=== PATIENT | male | born 1980 | race Two or more races ===

== ENCOUNTER 2017-06-14 20:09 | Emergency (ER) | payer BC, OTHER ==
[2017-06-14] MEDS ORDERED: methylPREDNISolone Sodium Succinate 125 MG/2 ML SDV IVPUSH ONE (20:31)
[2017-06-14] MEDS ORDERED: Sodium Chloride 0.9% 10 ML Syringe FLUSH PRN (20:31)
[2017-06-14] MEDS ORDERED: diphenhydrAMINE 50 MG/ML SDV IVPUSH ONE (20:31)
[2017-06-14] MEDS ORDERED: Famotidine 20 MG/2 ML SDV IVPUSH ONE (20:31)
--- NOTE | 2017-06-14 21:16 | EDM.PDOC ---
ED HPI GENERAL MEDICAL PROBLEM - General Chief Complaint: ENT Problem Stated Complaint: POSSIBLE ALERGIC REACTION Time Seen by Provider: 06/14/17 20:25 Source of Information: Reports: Patient History Limitations: Reports: No Limitations - History of Present Illness INITIAL COMMENTS - FREE TEXT/NARRATIVE: The patient presents with a possible allergic reaction. The patient ate some fajitas tonight and he went to a friends house and drank some water and then he noticed swelling to the inner lip on the right and swelling to the back of his throat and some phlegm back there. He may also have some shortness of breath. He has no history of allergies. He is not on any medication. He did not eat anything odd that may have caused a reaction. He has no rash. He has no fever , chills, cough, chest pain, abdominal pain or vomiting. He does have some nausea. He has some neck pain. Onset: Sudden Duration: Minutes: Location: Reports: Face Severity: Moderate Improves with: Reports: None Worsens with: Reports: None Context: Reports: Activity (It started after drinking some water) Associated Symptoms: Reports: Nausea/Vomiting. Denies: Chest Pain, Cough, Fever /Chills, Headaches, Shortness of Breath Right Ear Pain Score (Numeric/FACES): 6 - Related Data Allergies Allergy/AdvReac Type Severity Reaction Status Date / Time No Known Allergies Allergy Verified 06/14/17 20:24 Home Meds: Home Meds Lisdexamfetamine [Vyvanse] 20 mg PO DAILY 06/14/17 [History] Prednisone [IJD: predniSONE] 40 mg PO WITHBREAKFAST #10 tab 06/14/17 [Rx] Past Medical History Psychiatric History: Reports: ADHD Social & Family History - Tobacco Use Smoking Status *Q: Never Smoker - Recreational Drug Use Recreational Drug Use: No ED ROS ENT - Review of Systems Review Of Systems: See Below Constitutional: Reports: No Symptoms HEENT: Reports: Other (Edema in his mouth) Respiratory: Reports: No Symptoms Cardiovascular: Reports: No Symptoms Endocrine: Reports: No Symptoms GI/Abdominal: Reports: Abdominal Pain, Nausea. Denies: Vomiting : Reports: No Symptoms Musculoskeletal: Reports: No Symptoms ED EXAM, ENT - Physical Exam Exam: See Below Exam Limited By: No Limitations General Appearance: Alert, No Apparent Distress Ears: Normal External Exam Nose: Normal Inspection Mouth/Throat: Other (Edema to the right bucal area and edema of the uvula with mild erythema) Head: Atraumatic, Normocephalic Neck: Normal Inspection Respiratory/Chest: No Respiratory Distress, Lungs Clear, Normal Breath Sounds Cardiovascular: Regular Rate, Rhythm, No Edema, No Murmur GI/Abdominal: Soft, Non-Tender, No Organomegaly, No Mass Back: Normal Inspection Extremities: Normal Inspection Course - Vital Signs Last Recorded V/S: Last Vital Signs Temp 98.7 F 06/14/17 20:21 Pulse 89 06/14/17 20:21 Resp 16 06/14/17 20:21 BP 139/99 H 06/14/17 20:21 Pulse Ox 100 06/14/17 20:21 - Orders/Labs/Meds Orders: Active Orders 24 hr Category Date Time Status Peripheral IV Care [RC] . DIRECTED Care 06/14/17 20:31 Active Sodium Chloride 0.9% [Saline Flush] Med 06/14/17 20:31 Active 10 ml FLUSH ASDIRECTED PRN Peripheral IV Insertion Adult [OM.PC] Routine Oth 06/14/17 20:31 Ordered Medication Orders Sodium Chloride (Saline Flush) 10 ml FLUSH ASDIRECTED PRN PRN Reason: Keep Vein Open Last Admin: 06/14/17 20:45 Dose: 10 ml Meds: Medications Generic Name Dose Route Start Last Admin Trade Name Freq PRN Reason Stop Dose Admin Sodium Chloride 10 ml 06/14/17 20:31 06/14/17 20:45 Saline Flush FLUSH 10 ml ASDIRECTED PRN Administration Keep Vein Open Discontinued Medications Generic Name Dose Route Start Last Admin Trade Name Freq PRN Reason Stop Dose Admin Diphenhydramine HCl 50 mg 06/14/17 20:31 06/14/17 20:44 Benadryl IVPUSH 06/14/17 20:32 50 mg ONETIME ONE Administration Famotidine 20 mg 06/14/17 20:31 06/14/17 20:44 Pepcid IVPUSH 06/14/17 20:32 20 mg ONETIME ONE Administration Methylprednisolone Sodium Succinate 125 mg 06/14/17 20:31 06/14/17 20:44 Solu-Medrol IVPUSH 06/14/17 20:32 125 mg ONETIME ONE Administration - Re-Assessments/Exams Free Text/Narrative Re-Assessment/Exam: 06/14/17 21:16 I ordered an IV saline lock, solu-medrol 125mg IV, benadryl 50mg IV, and pepcid 20mg IV. 06/14/17 21:45 He is feeling much better. The swelling is down. He may have reacted to something. I will get him on some pepcid, prednisone, and claritin. I will have him follow up with a provider at [facility] in the next week. Departure - Departure Time of Disposition: 21:50 Disposition: Home, Self-Care 01 Condition: Good Clinical Impression: Uvulitis Allergic reaction Qualifiers: Encounter type: initial encounter Qualified Code(s): T78.40XA - Allergy, unspecified, initial encounter - Discharge Information Prescriptions: Prednisone [IJD: predniSONE] 40 mg PO WITHBREAKFAST #10 tab Referrals: PCP,None [Primary Care Provider] - Forms: ED Department Discharge Additional Instructions: Take the prednisone 40mg daily for 5 days. Take claritin daily and take pepcid daily for 5 days. Follow up with a provider at [facility] in the next week. Please return if you are worse. - My Orders Last 24 Hours: My Active Orders 06/14/17 20:31 Peripheral IV Care [RC] . DIRECTED Sodium Chloride 0.9% [Saline Flush] 10 ml FLUSH ASDIRECTED PRN Peripheral IV Insertion Adult [OM.PC] Routine - Assessment/Plan Last 24 Hours: My Active Orders 06/14/17 20:31 Peripheral IV Care [RC] . DIRECTED Sodium Chloride 0.9% [Saline Flush] 10 ml FLUSH ASDIRECTED PRN Peripheral IV Insertion Adult [OM.PC] Routine
== END 2017-06-14 22:00 | disposition home or self-care (01) ==
LOC: JD.ED 20:09
DX: T78.40XA Allergy, unspecified, initial encounter (principal); K12.2 Cellulitis and abscess of mouth
CPT/HCPCS: 96374; 96375; 99283; J1200; J2930; J7050; 99284

== ENCOUNTER 2023-09-29 07:04 | Emergency (ER) | payer OTHER, BC | END 2023-09-29 08:45 | disposition home or self-care (01) | LOC: JD.ED 07:04 | DX: S83.001A Unspecified subluxation of right patella, initial encounter (principal); Z79.899 Other long term (current) drug therapy; Z86.16 Personal history of COVID-19; X50.0XXA Overexertion from strenuous movement or load, initial encounter; Y93.89 Activity, other specified | CPT/HCPCS: 73564-26-RT; 73564-RT; 99282; 99283 ==

== ENCOUNTER 2025-01-28 12:47 | Emergency (ER) | payer BC ==
[2025-01-28 13:17] LABS: BASOPHILS ABSOLUTE AUTO 0.1 K/mm3 (0.0-0.2); BASOPHILS PERCENT AUTO 0.8 % (0.0-1.0); EOSINOPHILS ABSOLUTE AUTO 0.0 K/mm3 (0.0-0.4); EOSINOPHILS PERCENT AUTO 0.2 % (0.0-6.0); IMMATURE GRAN ABSOLUTE AUTO 0.01 K/mm3 (0.00-0.05); IMMATURE GRAN PERCENT AUTO 0.2 % (0.0-0.4); LYMPHOCYTES ABSOLUTE AUTO 2.1 K/mm3 (1.0-4.8); LYMPHOCYTES PERCENT AUTO 34.5 % (24.0-44.0); MEAN PLATELET VOLUME 9.5 fl (9.4-12.4); MONOCYTES ABSOLUTE AUTO 0.8 K/mm3 (0.0-0.8); MONOCYTES PERCENT AUTO 12.2 % (0.0-8.0); NEUTROPHILS ABSOLUTE AUTO 3.2 K/mm3 (1.8-7.7); NEUTROPHILS PERCENT AUTO 52.1 % (41.0-71.0); NRBC ABSOLUTE 0.00 (0.00-0.02); NRBC PERCENT 0.0 % (0.0-0.2); PLATELET COUNT,PLT 206 K/mm3 (150-400); RED BLOOD CELL COUNT 5.68 M/mm3 (4.52-5.90); WHITE BLOOD CELL COUNT,WBC 6.15 K/mm3 (3.9-11.3)
[2025-01-28 13:29] LABS: A/G RATIO 1.0 (1-2); ALANINE AMINOTRANSFERASE,ALT 31.0 U/L (16-63); ASPARTATE AMNIOTRANSFERASE,AST 28.0 U/L (15-37); BILIRUBIN TOTAL 0.5 mg/dL (0.2-1.0); BLOOD UREA NITROGEN,BUN 15.0 mg/dL (7-18); CARBON DIOXIDE,CO2 25.0 mEq/L (21-32); CHLORIDE,CL 98.0 mEq/L (98-107); CREATININE 1.3 mg/dL (0.7-1.3); EST CRCL DRUG DOSING (CG) 72.51 mL/min; ESTIMATED GFR 69.0 mL/min (>60); GLUCOSE RANDOM 105.0 mg/dL (70-99); POTASSIUM,K 3.2 mEq/L (3.5-5.1); PROTEIN TOTAL,TP 7.7 g/dl (6.4-8.2); SODIUM,NA 137.0 mEq/L (136-145); TROPONIN I HIGH SENSITIVITY 16.0 pg/mL (<=76)
[2025-01-28] MEDS: LORazepam 2 MG/ML SDV IVPUSH ONE (14:04)
[2025-01-28] MEDS: Sodium Chloride 0.9% 10 ML Syringe FLUSH PRN (14:09)
[2025-01-28] MEDS: Potassium Chloride 20 MEQ Tab.ER PO ONE (15:07)
== END 2025-01-28 15:15 | disposition home or self-care (01) ==
LOC: JD.ED 12:47
DX: R07.89 Other chest pain (principal); E87.6 Hypokalemia; Z79.899 Other long term (current) drug therapy; Z86.16 Personal history of COVID-19
CPT/HCPCS: 36415; 71045; 80053; 83735; 84484; 85025; 93005; 96361; 96374; 99285; A9270; J2060; J7030; 93010; 99284